=== PATIENT | female | born 1985 | race Caucasian/White ===

== ENCOUNTER 2024-09-15 04:36 | Emergency (ER) | payer SELFPAY ==
[~2024-09-15] VITALS: Ht 170.2 cm; Wt 91.0 kg
[2024-09-15 04:36] VITALS: BP 0/0; PULSE 0; RESP 0; O2SAT 0
[2024-09-15] MEDS ORDERED: DEXTROSE 50% WATER 50ML SYRINGE IV ONE ×2 (04:42→04:49)
[2024-09-15] MEDS ORDERED: ETOMIDATE 2MG/ML 10ML VIAL IV ONE (07:29)
[2024-09-15] MEDS ORDERED: CALCIUM CHLORIDE 1GM/10ML SYR IV ONE (07:58)
== END 2024-09-15 04:58 ==
LOC: ER 04:50
DX: I46.9 Cardiac arrest, cause unspecified (principal); F19.90 Other psychoactive substance use, unspecified, uncomplicated; Z79.899 Other long term (current) drug therapy
CPT/HCPCS: 82962; 92950; 31500; 31720; 99285; J3490 ×6; J0330; Z7610